=== PATIENT | male | born 1990 | race Two or more races ===

== ENCOUNTER 2021-02-11 13:14 | Emergency (ER) | payer SELFPAY ==
--- NOTE | 2021-02-11 13:50 | EDM.PDOC ---
ED HPI GENERAL MEDICAL PROBLEM - General Chief Complaint: ENT Problem Stated Complaint: DENTAL COMPLAINT Time Seen by Provider: 02/11/21 13:32 Source of Information: Reports: Patient, RN Notes Reviewed History Limitations: Reports: No Limitations - History of Present Illness INITIAL COMMENTS - FREE TEXT/NARRATIVE: Patient is a 30-year-old male who presents to the ER for the evaluation of his dental complaint. States that he has had some pain and swelling to his left upper jaw, that he noticed starting on Wednesday. He has had no fevers or chills, he states there is quite a bit of pain associated with this tooth. He does note that he has pretty poor teeth in general. He has an appointment to see a dentist tomorrow, but thought he would get seen in the ER for antibiotic purposes. He has no difficulty swallowing, and can talk appropriately and has no other respiratory difficulty at today's visit. Left Upper Tooth/Teeth Pain Score (Numeric/FACES): 9 - Related Data Allergies Allergy/AdvReac Type Severity Reaction Status Date / Time No Known Allergies Allergy Verified 02/11/21 13:35 Home Meds: Home Meds Amoxicillin/Clavulanate K [Augmentin 875-125 MG] 1 tab PO BID #14 tablet 02/11/21 [Rx] Hydrocodone/Acetaminophen [Hydrocodone-Acetamin 5-325 mg] 1 each PO Q6H PRN #12 tablet 02/11/21 [Rx] Past Medical History - Past Health History Medical/Surgical History: Denies Medical/Surgical History Social & Family History - Tobacco Use Tobacco Use Status *Q: Never Tobacco User - Caffeine Use Caffeine Use: Reports: None - Recreational Drug Use Recreational Drug Use: No ED ROS ENT - Review of Systems Review Of Systems: Comprehensive ROS is negative, except as noted in HPI. ED EXAM, ENT - Physical Exam Exam: See Below Exam Limited By: No Limitations General Appearance: Alert, WD/WN, No Apparent Distress Eye Exam: Bilateral Eye: EOMI, Normal Inspection, PERRL Mouth/Throat: Normal Inspection, Normal Lips, Normal Oropharynx, Dental Abcess (to left upper jaw; not drainable), Dental Pain (to left upper jaw) Head: Atraumatic, Other (left cheek swelling d/t tooth infection) Respiratory/Chest: No Respiratory Distress, Lungs Clear, Normal Breath Sounds, No Accessory Muscle Use, Chest Non-Tender Cardiovascular: Normal Peripheral Pulses, Regular Rate, Rhythm, No Edema Psychiatric: Normal Affect, Normal Mood Skin: Warm, Dry, Intact, Normal Color, No Rash Lymphatic: No Adenopathy Course - Vital Signs Last Recorded V/S: Last Vital Signs Temp 98.7 F 02/11/21 13:33 Pulse 88 02/11/21 13:33 Resp 16 02/11/21 13:33 BP 153/88 H 02/11/21 13:33 Pulse Ox 98 02/11/21 13:33 - Re-Assessments/Exams Free Text/Narrative Re-Assessment/Exam: 02/11/21 13:48 Patient presents to the ER for his dental complaint, we will go ahead and get him on Augmentin and give him some pain medication over the next few days and have him keep the dentist appointment for tomorrow for further management. Departure - Departure Time of Disposition: 13:48 Disposition: Home, Self-Care 01 Condition: Good Clinical Impression: Dental abscess - Discharge Information *PRESCRIPTION DRUG MONITORING PROGRAM REVIEWED*: Yes *COPY OF PRESCRIPTION DRUG MONITORING REPORT IN PATIENT VONDA: No Prescriptions: Amoxicillin/Clavulanate K [Augmentin 875-125 MG] 1 tab PO BID #14 tablet Hydrocodone/Acetaminophen [Hydrocodone-Acetamin 5-325 mg] 1 each PO Q6H PRN #12 tablet PRN Reason: Pain Instructions: Dental Abscess, [id number] Referrals: PCP,None [Primary Care Provider] - Forms: ED Department Discharge Additional Instructions: You have been evaluated in the ED for your dental pain. You have been provided with a script for Augmentin. Please take this medication as directed. (1 tab twice daily for 7 days or until gone). Please note this antibiotic can take up to 48 hours to provide coverage. If you do not notice an improvement in the swelling within 3 days time I recommend you seek care for re- evaluation for change in antibiotics. This antibiotic can cause diarrhea, recommend that you start a probiotic while taking this medication. Recommend you take a pain reliever like 500 mg Tylenol or 600 mg ibuprofen, every 6 hours as needed for further pain or discomfort. Ibuprofen should provide some anti-inflammatory action as well, and may help reduce some of the swelling and pain. Do not exceed 4000 mg Tylenol or 3200 mg ibuprofen in a 24- hour time span. You were given a prescription for a strong pain medication, hydrocodone/acetaminophen 5/325 mg, please take 1 tab every 6 hours as needed for pain not relieved by Tylenol or ibuprofen alone. Please note this medication does contain Tylenol in it, so do not take more than 4000 mg in a 24- hour time span. These medications can be addictive, so please take as few as possible to achieve adequate pain control. These meds can also be quite constipating, recommend that you increase your oral fluid intake and take a stool softener like MiraLAX while taking these medications. Do not drive while taking this medication. This medication was electronically sent to the [place] [facility]. You may use hot pack/ ice packs to the affected area as tolerated in 15-20 minute intervals. Keep your appointment with the dentist that you have already made for tomorrow, they may opt to wait to do anything with your affected tooth until the antibiotics have been given chance to work appropriately. Please return to the ED if your symptoms change or worsen. Sepsis Event Note (ED) - Evaluation Sepsis Screening Result: No Definite Risk - Focused Exam Vital Signs: Vital Signs Temp Pulse Resp BP Pulse Ox 02/11/21 13:33 98.7 F 88 16 153/88 H 98
== END 2021-02-11 14:25 | disposition home or self-care (01) ==
LOC: JD.ED 13:14
DX: K04.7 Periapical abscess without sinus (principal)
CPT/HCPCS: 99282; 99283